=== PATIENT | female | born 1935 | race Caucasian/White ===

== ENCOUNTER → 2017-06-09 | Outpatient (CLI) | payer MEDICARE ==
[~2017-06-09] MED LIST: ALPRAZOLAM PO; AZITHROMYCIN 2250 MG PO; BUPROPION HCL100 MG PO; CALCIUM 600 +1 EAC5 PO; CELEXA40 MG PO; CIPRO500 MG PO; CIPROFLOXACIN500 M1 PO; CLONIDINE0.1 PO; EFFEXOR 5050 MG/1 T1 PO; EFFEXOR PO; EFFEXOR XR75 MG PO; FLAGYL500 MG PO; HYDROCODONE PO; HYDROCODONE-AP1 EAC6 PO; HYDROCODONE-APA1 TA1 PO; LAMICTAL 25 MG25 M1 PO; LISINOPRIL; LISINOPRIL10 MG PO; LYRICA PO; MIRALAX17 GM PO; MOBIC7.5 MG PO; MUCINEX600 MG PO; NEURONTIN 300300 M1 PO; NORCO 10-325 T1 EACH PO; NORCO 5-325 TA1 EACH PO; NORVASC2.5 MG PO; PERCOCET 5-3251 EACH PO; PHENERGAN 25 MG25 M1 PO; POTASSIUM20 PO; PRILOSEC 10MG C10 MG PO; PRILOSEC 20 MG20 MG PO; PRINZIDE 20-121 EACH PO; PROAIR HFA8.5 GM INH; SEE COMMENTS; SIMVASTATIN80 MG PO; VICODIN 5-5001 EACH PO; XANAX 0.25 MG0.25 MG PO; XANAX 0.5 MG0.5 MG PO; ZOCOR20 MG PO; ZOFRAN4 MG PO; [UNRECOGNIZED DRUG - REMARK]; [UNRECOGNIZED DRUG - REMARK]
== END ==
LOC: M.LAB 04:15
DX: Z01.812 Encounter for preprocedural laboratory examination (principal); E87.6 Hypokalemia

== ENCOUNTER → 2017-09-01 | Outpatient (CLI) | payer MEDICARE ==
--- NOTE | 2017-09-04 09:57 | PAINCON ---
[address] [address] PAIN MANAGEMENT CONSULTATION Name: SHONAJESSICA Maribel Room: [facility] COURTNEY Akanksha#: [id number] Admission: 09/01/17 Attend Phys: Maribel Barry Discharge: Date of : 37 Report #: [id number] THIS REPORT FOR: //name// CC: Jayleen Kang The patient is an 82-year-old female. She had prior been treated for symptomatic lumbar radiculopathy and axial back pain, history of osteopenia, requiring complex medication management. Last seen in pain clinic nearly a year ago in 08/2016. She returns to pain clinic today. We had a prolonged visit reviewing significant interval history. She did have a lumbar decompressive laminectomy with Dr. Freddy Winston at [facility]. Unfortunately, she still has ongoing axial back pain and exquisite left electric burning pain in an L5 distribution going into the foot and middle toes. She has some subjective weakness here and is using a cane. She is known of pulmonary "lesions" for quite some time, though there was concern that they may be growing. She is now [facility] She was also found to have a brain aneurysm as well as a brain tumor, which is felt to be benign. She followed up with Dr. Morgan Pacheco who suggested no surgery at this time. PHYSICAL EXAMINATION: Today notes pleasant 82-year-old female, significant subjective pain that she rates a 5-6 on a VAS. A petite woman, 5 feet tall, 116 pounds, BMI is 22.7 kilograms per meter squared. Blood pressure 137/49, pulse 85, respirations 16. Alert and oriented to person, place and time, judged to be a reasonable historian. Rises from chair using armrest. Antalgic gait. Grossly positive straight leg raise on the left with significant decreased left plantar flexion and lower leg flexion strength. Both these seem to exacerbate radicular pain. ASSESSMENT: 1. Symptomatic lumbar radiculopathy status post decompressive laminectomy, acute neuropathic pain, left L4-L5 distribution. New diagnosis of concern for pulmonary tumor. 2. New diagnosis of brain aneurysm as well as a brain tumor health issues are being monitored. Currently, no interventional procedures noted. She will, however, require frequent MRIs for following these. This may preclude many spinal cord stimulators, though the Nevro high frequency spinal cord stimulator with percutaneous leads is total body MRI compatible and may consider this as therapeutic option moving forward. PROCEDURE: Left L5-S1 transforaminal epidural [place] [address] PAIN MANAGEMENT CONSULTATION Name: JESSICA NAGEL Room: NADINE Vale#: [id number] Admission: 09/01/17 Attend Phys: Maribel Barry Discharge: Date of : 37 Report #: [id number] PROCEDURE NOTE: After both written and informed consent was obtained including risk of spinal cord damage, infection, increased pain and paralysis, the patient agreed to proceed. The patient was taken to the fluoroscopy suite, placed in a prone position with appropriate abdominal bolstering. After sterile prep with ChloraPrep and sterile drape, a skin wheal with 1% Xylocaine was raised. A 22 gauge 4-1/2 inch epidural Tuohy needle was inserted. From an oblique approach into the posterior-superior aspect of the left L5-S1 neural foramen with continuous pressure on the glass syringe plunger for loss of resistance. Glass syringe was filled with 2 cc of 0.1 Xylocaine. The glass loss of resistance syringe was removed. A low volume extension tubing was connected, negative aspiration was accomplished for cerebrospinal fluid or blood. 1 mL of Omnipaque was injected which showed spread both within the epidural space and laterally along the nerve root. This was followed with 80 mg of triamcinolone plus 1 mL of 1.5% preservative-free Xylocaine. Needle was partially withdrawn, 0.5 mL of Xylocaine was injected to clear the needle and the needle was removed. The area was cleansed, band-aid was applied. The patient was allowed to ambulate to the recovery room, discharged in good and stable condition. <ELECTRONICALLY SIGNED> By: Delvin Kang DO 09/04/17 0957 1210 1307Delvin Kang DO /nt
== END | disposition home or self-care (01) ==
LOC: M.PC 02:58
DX: M54.16 Radiculopathy, lumbar region (principal); G89.29 Other chronic pain; D49.1 Neoplasm of unspecified behavior of respiratory system; C71.9 Malignant neoplasm of brain, unspecified; Z79.891 Long term (current) use of opiate analgesic; Z98.890 Other specified postprocedural states

== ENCOUNTER → 2017-09-22 | Outpatient (CLI) | payer MEDICARE ==
--- NOTE | 2017-09-27 06:53 | PAINCON ---
[address] [address] PAIN MANAGEMENT CONSULTATION Name: SHONAJESSICA Maribel Room: [facility] COURTNEY Akanksha#: [id number] Admission: 09/22/17 Attend Phys: Maribel Barry Discharge: Date of : 37 Report #: [id number] THIS REPORT FOR: //name// CC: Uche Kang DATE OF SERVICE: 09/22/2017 HISTORY OF PRESENT ILLNESS: The patient is an 82-year-old female being treated for lumbar radiculopathy status post decompressive laminectomy, axial back pain requiring complex medication management. Last seen in the pain clinic on 09/01/2017. We have done a left L5-S1 transforaminal epidural injection at that time. She noted 100% relief initially, the pain has gradually returned somewhat. She still has overall 50% improvement in her baseline pain. She has a burning dysesthesia in her left foot and left L5 radicular pain. Uses a cane in her left hand. PHYSICAL EXAMINATION: Shows a modestly antalgic gait. BMI is 22.1 kilograms per meter squared. Blood pressure 137/75, pulse 83, respirations 18. Subjective pain score is 4 on a VAS. Rises from chair using armrest. Positive straight leg raise on the left with antalgic gait and decreased strength on the left side. ASSESSMENT: Symptomatic lumbar radiculopathy status post decompressive laminectomy. RECOMMENDATION: Repeat left L5-S1 transforaminal injection today with follow up simply as needed. PROCEDURE: Transforaminal lumbar epidural injection under fluoroscopy. PROCEDURE NOTE: After both written and informed consent was obtained including risk of spinal cord damage, infection, increased pain and paralysis, the patient agreed to proceed. The patient was taken to the fluoroscopy suite, placed in a prone position with appropriate abdominal bolstering. After sterile prep with ChloraPrep and sterile drape, a skin wheal with 1% Xylocaine was raised. A 22 gauge 4-1/2 inch epidural Tuohy needle was inserted. From an oblique approach into the posterior-superior aspect of the left L5-S1 neural foramen with continuous pressure on the glass syringe plunger for loss of resistance. Glass syringe was filled with 2 mL of 0.1 Xylocaine. The glass loss of resistance syringe was removed. A low volume extension tubing was connected, negative aspiration was accomplished for cerebrospinal fluid or blood. 1 mL of Omnipaque was injected which showed spread both within the epidural space and laterally along the nerve root. This was followed with 80 mg of triamcinolone plus 1 mL of 1.5% preservative-free Xylocaine. Needle was partially withdrawn, 0.5 mL of Xylocaine was injected to clear the needle and [place] [address] PAIN MANAGEMENT CONSULTATION Name: SHONAJESSICA Maribel Room: [facility] MAHESH Vale#: [id number] Admission: 09/22/17 Attend Phys: Maribel Barry Discharge: Date of : 37 Report #: [id number] was cleansed, band-aid was applied. The patient was allowed to ambulate to the recovery room, discharged in good and stable condition. <ELECTRONICALLY SIGNED> By: Delvin Knag DO 09/27/17 0653 1401 0508Delvin Kang DO /nt
== END | disposition home or self-care (01) ==
LOC: M.PC 01:43
DX: M54.16 Radiculopathy, lumbar region (principal); G89.29 Other chronic pain; Z79.891 Long term (current) use of opiate analgesic; Z79.899 Other long term (current) drug therapy; Z87.19 Personal history of other diseases of the digestive system; Z98.890 Other specified postprocedural states

== ENCOUNTER → 2017-12-09 | Outpatient (CLI) | payer MEDICARE ==
--- NOTE | 2017-12-15 14:16 | PAINCON ---
[address] [address] PAIN MANAGEMENT CONSULTATION Name: JESSICA NAGEL Room: [facility] Akanksha#: [id number] Admission: 12/09/17 Attend Phys: Griselda Liu MD Discharge: Date of : 37 Report #: [id number] THIS REPORT FOR: //name// CC: Griselda Garvey DATE OF SERVICE: 12/09/2017 CHIEF COMPLAINT: Lumbar pain down into the left leg. HISTORY OF PRESENT ILLNESS: The patient is an 82-year-old female with a history of spinal stenosis and osteopenia. She has been experiencing low back pain with pain radiating down into her left leg. She has had some problems with her low back for years. She feels that her sciatic is "real bad." She finds that [place] continues to be helpful. She had an MRI about 6 months ago for lung cancer. No treatment has been taken. Rates her pain as a 4-5/10. Notes that activities such as walking, bending, running the vacuum brass cleaner, and going up and down stairs can exacerbate her discomfort. ALLERGIES: No known drug allergies. MEDICATIONS: Effexor XR 37.5 mg, lisinopril 10 mg daily, Xanax 0.25 mg daily, Prilosec 10 mg, simvastatin 20 mg, hydrocodone 5/325 q. 4-6h. p.r.n. PAST MEDICAL HISTORY: Irritable bowel syndrome, diverticulosis, depression/anxiety, hypertension, colon problems, lung disease, and COPD. PAST SURGICAL HISTORY: Hysterectomy in 1966, colon surgery in 2003. 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 PAIN CLINIC ASSESSMENT: 1. History of osteoarthritis with some arthritic changes in the low portion of her back with spinal stenosis, back surgery in the past. 2. Height 5 feet 0 inches, weight 114 pounds, BMI is 22. 3. Vital signs: Blood pressure 136/74, heart rate 86, respiratory rate 16, room air saturation 95%, temperature 98.0, pain rated as 4-5/10. 4. Fall. The patient has chronic sciatica. Fell about 3 years ago. States that she fell down 6 steps and landed on her butt on each step, ____ third vertebrae. 5. Blood thinner. The patient is not on a blood thinning medication. 6. Hypertension. The patient is being treated for hypertension. 7. Opioid therapy greater than 6 weeks. 8. Risk assessment tool. 9. Functional assessment tool. 10. Recreational drug use. The patient [place] [address] PAIN MANAGEMENT CONSULTATION Name: JESSICA NAGEL Maribel Room: [facility]#: [id number] Admission: 12/09/17 Attend Phys: Griselda Liu MD Discharge: Date of : 37 Report #: [id number] 11. Tobacco 3/4 of a pack of cigarettes, smoked for 60 years. 12. Alcohol: The patient denies use of alcoholic beverages. PHYSICAL EXAMINATION: GENERAL: The patient is a well-developed white female, appears her stated age. She is alert and oriented x 3. Complains of pain and discomfort in the lower portion of her back. Sits in a chair, leaning to the left. Speech is fluent. HEENT: Normocephalic, atraumatic. Extraocular eye muscles intact. Hearing within normal limits. Mucous membranes are moist. NECK: Without JVD or adenopathy. LUNGS: Somewhat decreased breath sounds. ABDOMEN: Nontender. EXTREMITIES: Upper extremity muscle strength is judged to be 4/5 for the major muscle groups in the upper extremity. The patient complains of pain and discomfort in lower portion of her back with pain that radiating down into the left leg. IMPRESSION: Low back pain with pain radiating down to the left leg, ____ irritable bowel syndrome, diverticulosis, depression/anxiety, hypertension, colon problems, lung disease, and chronic obstructive pulmonary disease. RECOMMENDATIONS: We discussed treatment options with the patient. Risks and benefits of an epidural steroid injection using the transforaminal approach were discussed. Possible complications of the procedure were reviewed. They could include but are not limited to infection, no improvement in pain, worsening of pain, bleeding, and infection. The patient elects to proceed. PROCEDURE NOTE: The patient was taken to the procedure area. She was then assisted in getting on the examination table. Her back was then positioned. A pillow was placed under the abdomen to help bolster and improve positioning. Fluoroscopy using anterior posterior as well as lateral viewing were instituted. A 0.25% bupivacaine was infiltrated at the L5/S1 area. A 20-gauge spinal needle was then advanced into this area after it had been sterilely prepped using a transforaminal approach. After appropriate placement, a total of 80 mg Depo-Medrol, 20 mg triamcinolone was injected into the area. The patient did not complain of any pain or discomfort during the procedure. She remained in the pain clinic for an appropriate amount of time. She will follow up in the future as needed. Hopefully, she continues to improve and gain clean benefit from this. We would like to thank you for letting us participate in her care. We hope she continues to improve. <ELECTRONICALLY SIGNED> By: Griselda Liu MD 12/15/17 1416 2129 0120N. Jorge Luis Liu MD /nt
== END | disposition home or self-care (01) ==
LOC: M.PC 03:27
DX: M54.16 Radiculopathy, lumbar region (principal); G89.29 Other chronic pain; I10 Essential (primary) hypertension; J44.9 Chronic obstructive pulmonary disease, unspecified; F32.9 Major depressive disorder, single episode, unspecified; F41.9 Anxiety disorder, unspecified; Z87.19 Personal history of other diseases of the digestive system; Z79.899 Other long term (current) drug therapy; Z90.710 Acquired absence of both cervix and uterus; Z98.890 Other specified postprocedural states; Z79.891 Long term (current) use of opiate analgesic

== ENCOUNTER 2018-02-02 19:12 | Emergency (ER) | payer MEDICARE ==
[~2018-02-02] VITALS: Ht 152.4 cm; Wt 49.4 kg
[~2018-02-02 19:12] MED LIST changes: -ZOFRAN4 MG PO
[2018-02-02 19:50] LABS: HEMATOCRIT 47.1 % (37.0-47.0); HEMOGLOBIN 15.8 gm/dL (12.0-15.0); MCH 31.7 pg (26.0-34.0); MCHC 33.6 g/dL (28.0-37.0); MCV 94.4 fL (80.0-100.0); MPV 7.3 fl. (7.2-11.1); NUCLEATED RBCS 0 /100WBC; PLATELET COUNT* 331 thou/uL (150-400); RBC 4.99 mil/uL (4.20-5.00); RDW-CV 13.4 % (10.5-14.5); WBC 17.1 thou/uL (4.0-11.0)
[2018-02-02 19:54] LABS: ANION GAP 7 mmol/L (7-16); BUN 36 mg/dL (7-18); CALCIUM 8.8 mg/dL (8.5-10.1); CHLORIDE 97 mmol/L (98-107); CO2 31 mmol/L (21-32); CREATININE 1.2 mg/dL (0.6-1.3); GLUCOSE 140 mg/dL (70-99); POTASSIUM 3.2 mmol/L (3.5-5.1); SODIUM 135 mmol/L (136-145)
[2018-02-02 20:05] LABS: ALBUMIN 3.5 g/dL (3.4-5.0); ALKALINE PHOSPHATASE 58 U/L (46-116); LIPASE 131 U/L (73-393); NT-PRO BRAIN NAT PEPTIDE 289 pg/mL (<300); SGOT 23 U/L (15-37); SGPT 27 U/L (30-65); TOTAL BILIRUBIN 0.3 mg/dL (<0.1-1.0); TOTAL PROTEIN 6.9 g/dL (6.4-8.2)
[2018-02-02 20:19] LABS: TROPONIN-I LEVEL <0.06 ng/mL (<0.06)
[2018-02-02 20:31] LABS: ABSOLUTE LYMPHOCYTES 3.6 thou/uL (0.8-5.3); ABSOLUTE MONOCYTES 2.4 thou/uL (0.0-1.2); ABSOLUTE NEUTROPHILS 11.1 thou/uL (1.6-8.1); METAMYELOCYTES 1 %; PLATELET ESTIMATE ADEQUATE
[2018-02-02 20:35] LABS: URINE BILIRUBIN NEGATIVE (Negative); URINE BLOOD 1+ (Negative); URINE CLARITY CLEAR; URINE COLOR YELLOW; URINE GLUCOSE-RANDOM NEGATIVE (Negative); URINE KETONES NEGATIVE (Negative); URINE LEUKOCYTES-REFLEX TRACE (Negative); URINE NITRITE-REFLEX NEGATIVE (Negative); URINE PROTEIN TRACE (Negative); URINE UROBILINOGEN 0.2 E.U./dl (0.2-1.0)
[2018-02-02 20:44] LABS: BACTERIA-REFLEX 1-9 Few /HPF (None Seen); CASTS None Seen /LPF (None Seen); CRYSTALS None Seen /LPF (None Seen); SQUAMOUS 4-10 Moderate /LPF (0-3); URINE RBC 0-2 Rare /HPF (0-2); URINE WBC-REFLEX 0-5 Rare /HPF (0-5)
[2018-02-02] MEDS ORDERED: ZOFRAN4 MG PO (21:19)
[2018-02-02 21:33] VITALS: BP 132/60
--- NOTE | 2018-02-03 16:40 | EKG ---
[place] [address] ELECTROCARDIOGRAM REPORT Name: JESSICA NAGEL Room: [facility]#: [id number] Admission: 02/02/18 Attend Phys: Discharge: 02/02/18 Date of : 37 Report #: [id number] THIS REPORT FOR: //name// [facility] ED Test Date: 2018-02-02 Test Time: 21:18:04 Pat Name: JESSICA NAGEL Department: Room: Gender: F Learning Coordinator: NICO : 1935 Requested By: Saba Velasquez Order Number: [id number] MD: Morgan Oliver Measurements Intervals [place] Rate: 76 P: 78 NM: 166 QRS: 22 QRSD: 92 T: 110 QT: 392 QTc: 441 Interpretive Statements Sinus rhythm Borderline repolarization abnormality Compared to ECG 01/06/2017 18:43:32 ST (T wave) deviation persists Electronically Signed On 02-03-2018 16:40:40 CDT by Morgan Oliver [email or web address] <ELECTRONICALLY SIGNED> By: Morgan Oliver MD, [facility] 02/03/18 [employer] 17 17 Morgan Oliver MD, FACC /EPI
[2018-02-15] MEDS ORDERED: ZOFRAN4 MG PO (08:14)
[2018-02-15] MEDS ORDERED: NEURONTIN 300300 M1 PO (09:47)
== END 2018-02-02 21:34 | disposition home or self-care (01) ==
LOC: M.ERS 19:12
PROVIDERS: Nurse Practitioner
DX: R10.84 Generalized abdominal pain (principal); R19.7 Diarrhea, unspecified; J44.9 Chronic obstructive pulmonary disease, unspecified; M54.30 Sciatica, unspecified side; F17.210 Nicotine dependence, cigarettes, uncomplicated

== ENCOUNTER → 2018-02-15 | Outpatient (CLI) | payer MEDICARE ==
[~2018-02-15] MED LIST changes: +ZOFRAN4 MG PO
--- NOTE | 2018-02-28 10:30 | PAINCON ---
[facility] [address] [place] [address] PAIN MANAGEMENT CONSULTATION Name: BEATRIZLINDAJESSICA BONE Room: [facility] MAHESH Vale#: [id number] Admission: 02/15/18 Attend Phys: Griselda Liu MD Discharge: Date of : 37 Report #: [id number] THIS REPORT FOR: //name// CC: Griselda Garvey DATE OF SERVICE: 02/15/2018 FOLLOWUP HISTORY: Injection lasted about 2 weeks. FOLLOWUP HISTORY: The patient is an 82-year-old female who has been followed in the Pain Clinic because of lumbar radiculopathy. She has undergone back surgery. Continues to have problems with spinal stenosis and has pain and discomfort in her back area. Also, has pain and discomfort down into the left leg, which is burning in nature. She underwent a transforaminal epidural steroid injection. She gleaned benefit, but felt that that lasted for about 2 weeks. At this juncture, she does not feel that an injection would be worth a 2-week benefits that she received. She has used gabapentin in the past. She cannot recall what benefits was cleaned, she stopped that after she had her back surgery. Does have limitation in her ability to engage in activities such as walking, bending, running, running of vacuum casing cleaner and climbing stairs. Rates her pain as a 6/10. She has had no complications from the injections. She finds that [place] 10 mg 1 p.o. t.i.d. to q.i.d. is helpful. Also, finds that Xanax is helpful at night to help promote sleep. ALLERGIES: No known drug allergies. MEDICATIONS: Effexor 37.5 mg, lisinopril 10 mg, Xanax 0.25 mg, Prilosec 10 mg, simvastatin 20 mg and hydrocodone 10/325 one p.o. q.i.d. PAIN CLINIC ASSESSMENT AND PQRS: 1. History of osteoarthritis with some arthritic change in the lower portion of her back with spinal stenosis and back surgery in the past. 2. Rheumatoid arthritis. The patient has not been treated for rheumatoid arthritis. 3. Height 5 feet 0 inches, weight 113 pounds, BMI is 22. 4. Vital signs: Blood pressure 163/73, heart rate 82, respiratory rate 16, room air saturation 96%, temperature 98.5. Pain score 6/10. 5. Fall history: The patient has not fallen in the last 3 months. 6. Blood thinner. The patient is not on blood thinning medication. 7. Hypertension. The patient is being treated for hypertension. 8. Opioid greater than 6 weeks. 9. Risk assessment tool. 10. Functional assessment tool. 11. Recreational drug use. 12. Tobacco ____ pack of cigarettes per day. The patient has smoked for 60 [facility] [address] [place] [address] PAIN MANAGEMENT CONSULTATION Name: JESSICA NAGEL Room: [facility]#: [id number] Admission: 02/15/18 Attend Phys: Griselda Liu MD Discharge: Date of : 39 Report #: [id number] years. I spent three minutes discussing the benefits of cessation of all tobacco. 13. Alcohol: The patient denies use of alcoholic beverages. PHYSICAL EXAMINATION: GENERAL: The patient is a well-developed, well-nourished white female. She appears her stated age. She is alert and oriented x 3. Complains of pain and discomfort in lower portion of her back. Sits in the chair, leaning forward and to the left. Speech is fluent. HEENT: Normocephalic, atraumatic. Extraocular eye muscles intact. Hearing is within normal limits. Mucous membranes are moist. NECK: Without JVD or adenopathy. LUNGS: Decreased breath sounds. ABDOMEN: Nontender. Bowel sounds present. EXTREMITIES: Lower extremity muscle strength judged to be 4/5 for the major muscle groups. Upper extremity muscle strength is judged to be 4/5. The patient walks with an exaggerated left and right movement, which has characteristics of a painful gait. IMPRESSION: 1. Low back pain status post back surgery with spinal stenosis 2. Irritable bowel syndrome. 3. Diverticulosis. 4. Depression/anxiety. 5. Hypertension. 6. Colon problems. 7. Lung disease. 8. Chronic obstructive pulmonary disease. RECOMMENDATIONS: We discussed treatment options with the patient. At this juncture, she feels like she has gotten less pain relief from the injections that she would like. She would like to continue with a conservative approach. We explained to her that is a reasonable option. She has used gabapentin in the past. She cannot recall whether or not this was helpful she thinks it may have been. We will start her on gabapentin and slowly titrate this up again. She will continue with the [place]. She states she has some medications to her primary physician. I think this is a reasonable treatment for a lady of her age. She is not a real candidate for additional surgery. Does not feel that the injections have been efficacious as she would like. She will follow up in the future as needed. We would like to thank you for letting us participate in her care. We hope she continues to improve. <ELECTRONICALLY SIGNED> By: Griselda Liu MD 02/28/18 1030 0957 1107N. Jorge Luis Liu MD /schuyler
== END ==
LOC: M.PC 10-20 09:00
DX: M54.5 Low back pain (principal); K58.9 Irritable bowel syndrome, unspecified; K57.90 Diverticulosis of intestine, part unspecified, without perforation or abscess without bleeding; F41.8 Other specified anxiety disorders; I10 Essential (primary) hypertension; J44.9 Chronic obstructive pulmonary disease, unspecified; J98.4 Other disorders of lung; K63.9 Disease of intestine, unspecified

== ENCOUNTER 2018-04-08 04:35 | Emergency (ER) | payer MEDICARE ==
[~2018-04-08] VITALS: Ht 152.4 cm; Wt 48.9 kg
[2018-04-08 04:58] LABS: ABSOLUTE LYMPHOCYTES 1.3 thou/uL (0.8-5.3); ABSOLUTE MONOCYTES 0.5 thou/uL (0.0-1.2); ABSOLUTE NEUTROPHILS 6.5 thou/uL (1.6-8.1); BASOPHILS 0.5 %; HEMATOCRIT 46.1 % (37.0-47.0); HEMOGLOBIN 15.7 gm/dL (12.0-15.0); LYMPHOCYTES 15.7 %; MCH 31.9 pg (26.0-34.0); MCHC 33.9 g/dL (28.0-37.0); MCV 93.9 fL (80.0-100.0); MONOCYTES 6.2 %; MPV 8.1 fl. (7.2-11.1); NUCLEATED RBCS 0 /100WBC; PLATELET COUNT* 285 thou/uL (150-400); POLYS 77.6 %; RBC 4.91 mil/uL (4.20-5.00); RDW-CV 12.8 % (10.5-14.5); WBC 8.4 thou/uL (4.0-11.0)
[2018-04-08 05:06] LABS: CALCIUM 10.5 mg/dL (8.5-10.1); POTASSIUM 3.1 mmol/L (3.5-5.1)
[2018-04-08 05:09] LABS: ALBUMIN 4.4 g/dL (3.4-5.0); TOTAL BILIRUBIN 0.4 mg/dL (<0.1-1.0); TOTAL PROTEIN 7.8 g/dL (6.4-8.2)
[2018-04-08 06:34] VITALS: BP 138/66
== END 2018-04-08 06:34 | disposition home or self-care (01) ==
LOC: M.ERS 04:35
PROVIDERS: Emergency Medicine
DX: R10.13 Epigastric pain (principal); R10.12 Left upper quadrant pain; R19.7 Diarrhea, unspecified; J44.9 Chronic obstructive pulmonary disease, unspecified; K58.9 Irritable bowel syndrome, unspecified; F17.210 Nicotine dependence, cigarettes, uncomplicated

== ENCOUNTER 2018-04-12 18:23 | Emergency (ER) | payer MEDICARE ==
[~2018-04-12] VITALS: Ht 152.4 cm; Wt 48.5 kg
[2018-04-12 18:46] LABS: ABSOLUTE BASOPHILS 0.2 thou/uL (0.0-0.2); ABSOLUTE EOSINOPHILS 0.1 thou/uL (0.0-0.7); ABSOLUTE LYMPHOCYTES 5.4 thou/uL (0.8-5.3); ABSOLUTE MONOCYTES 1.6 thou/uL (0.0-1.2); ABSOLUTE NEUTROPHILS 7.8 thou/uL (1.6-8.1); BASOPHILS 1.2 %; EOSINOPHILS 0.7 %; HEMATOCRIT 48.5 % (37.0-47.0); HEMOGLOBIN 16.2 gm/dL (12.0-15.0); LYMPHOCYTES 35.9 %; MCH 31.5 pg (26.0-34.0); MCHC 33.4 g/dL (28.0-37.0); MCV 94.3 fL (80.0-100.0); MONOCYTES 10.6 %; MPV 8.1 fl. (7.2-11.1); NUCLEATED RBCS 0 /100WBC; PLATELET COUNT* 295 thou/uL (150-400); POLYS 51.6 %; RBC 5.14 mil/uL (4.20-5.00); WBC 15.1 thou/uL (4.0-11.0)
[2018-04-12 18:55] LABS: ANION GAP 10 mmol/L (7-16); BUN 33 mg/dL (7-18); CALCIUM 9.5 mg/dL (8.5-10.1); CHLORIDE 96 mmol/L (98-107); CO2 31 mmol/L (21-32); CREATININE 1.2 mg/dL (0.6-1.3); GLUCOSE 115 mg/dL (70-99); SODIUM 137 mmol/L (136-145)
[2018-04-12 18:56] LABS: APTT 24.1 Seconds (25.0-31.3); INR 1.1
[2018-04-12 19:01] LABS: ALBUMIN 3.8 g/dL (3.4-5.0); ALKALINE PHOSPHATASE 65 U/L (46-116); LIPASE 141 U/L (73-393); SGOT 20 U/L (15-37); SGPT 22 U/L (30-65); TOTAL BILIRUBIN 0.4 mg/dL (<0.1-1.0); TOTAL PROTEIN 6.8 g/dL (6.4-8.2); TROPONIN-I LEVEL <0.06 ng/mL (<0.06)
[2018-04-12 20:22] VITALS: BP 111/85
--- NOTE | 2018-04-13 16:15 | EKG ---
[place] [address] ELECTROCARDIOGRAM REPORT Name: JESSICA NAGEL [id number] Admission: 04/12/18 Attend Phys: Discharge: 04/12/18 Date of : 39 Report #: [id number] THIS REPORT FOR: //name// [facility] ED Test Date: 2018-04-12 Test Time: 18:43:17 Pat Name: JESSICA NAGEL Department: Room: Gender: F Quarry Supervisor Dimension Stone: : 1935 Requested By: Josué Can Order Number: [id number] MD: Morgan Oliver Measurements Intervals [place] Rate: 76 P: 81 IA: 150 QRS: 45 QRSD: 87 T: 76 QT: 383 QTc: 431 Interpretive Statements Sinus rhythm Compared to ECG 02/02/2018 21:18:04 No significant changes Electronically Signed On 04-13-2018 16:15:34 TERRAZZO LAYER by Morgan Oliver [email or web address] <ELECTRONICALLY SIGNED> By: Morgan Oliver MD, [facility] 04/13/18 1615 1843 1843 Morgan Oliver MD, FACC /EPI
== END 2018-04-12 20:23 | disposition home or self-care (01) ==
LOC: M.ERS 18:23
PROVIDERS: Family Medicine
DX: K59.00 Constipation, unspecified (principal); K58.9 Irritable bowel syndrome, unspecified; J44.9 Chronic obstructive pulmonary disease, unspecified; F17.210 Nicotine dependence, cigarettes, uncomplicated

== ENCOUNTER 2019-05-10 20:42 | Emergency (ER) | payer MEDICARE ==
[~2019-05-10] VITALS: Ht 149.9 cm; Wt 45.4 kg
[2019-05-10 21:06] LABS: ABSOLUTE LYMPHOCYTES 1.6 thou/uL (0.8-5.3); ABSOLUTE MONOCYTES 0.3 thou/uL (0.0-1.2); ABSOLUTE NEUTROPHILS 5.4 thou/uL (1.6-8.1); BASOPHILS 0.4 %; EOSINOPHILS 0.1 %; HEMATOCRIT 48.5 % (37.0-47.0); HEMOGLOBIN 16.6 gm/dL (12.0-15.0); LYMPHOCYTES 22.5 %; MCH 31.5 pg (26.0-34.0); MCHC 34.3 g/dL (28.0-37.0); MCV 91.8 fL (80.0-100.0); MONOCYTES 3.7 %; MPV 7.8 fl. (7.2-11.1); NUCLEATED RBCS 0 /100WBC; PLATELET COUNT* 331 thou/uL (150-400); POLYS 73.3 %; RBC 5.28 mil/uL (4.20-5.00); RDW-CV 13.5 % (10.5-14.5); WBC 7.3 thou/uL (4.0-11.0)
[2019-05-10 21:13] LABS: CALCIUM 10.1 mg/dL (8.5-10.1); POTASSIUM 4.2 mmol/L (3.5-5.1)
[2019-05-10 21:20] LABS: INR 1.1; PROTIME 11.2 Seconds (9.20-11.50)
[2019-05-10 21:24] LABS: ALBUMIN 4.6 g/dL (3.4-5.0); TOTAL BILIRUBIN 0.3 mg/dL (<0.1-1.0); TOTAL PROTEIN 8.7 g/dL (6.4-8.2)
[2019-05-10 23:03] LABS: URINE BILIRUBIN NEGATIVE (Negative); URINE BLOOD TRACE (Negative); URINE CLARITY CLEAR; URINE COLOR STRAW; URINE GLUCOSE-RANDOM NEGATIVE (Negative); URINE KETONES NEGATIVE (Negative); URINE LEUKOCYTES-REFLEX NEGATIVE (Negative); URINE NITRITE-REFLEX NEGATIVE (Negative); URINE PROTEIN NEGATIVE (Negative); URINE UROBILINOGEN 0.2 E.U./dl (0.2-1.0)
[2019-05-10 23:34] VITALS: BP 166/65
--- NOTE | 2019-05-11 12:58 | EKG ---
[place] [address] ELECTROCARDIOGRAM REPORT Name: JESSICA NAGEL [id number] Admission: 05/10/19 Attend Phys: Discharge: 05/10/19 Date of : 39 Report #: [id number] THIS REPORT FOR: //name// [facility] ED Test Date: 2019-05-10 Test Time: 21:07:05 Pat Name: JESSICA NAGEL Department: Room: Gender: F Service Secretary: [place] : 1935 Requested By: Queenie Huff Order Number: [id number] MD: Freddy Cardoza Measurements Intervals [place] Rate: 75 P: 83 MN: 143 QRS: 41 QRSD: 88 T: 89 QT: 414 QTc: 463 Interpretive Statements Sinus rhythm Nonspecific T abnormalities, lateral leads Compared to ECG 04/12/2018 18:43:17 no change Electronically Signed On 05-11-2019 12:57:34 MICROBIOLOGY DIRECTOR by Freddy Cardoza [email or web address] <ELECTRONICALLY SIGNED> By: Freddy Cardoza MD, [facility] 05/11/19 1257 06 06 Freddy Cardoza MD, FACC /EPI
== END 2019-05-10 23:35 | disposition home or self-care (01) ==
LOC: M.ERS 20:42
PROVIDERS: Emergency Medicine
DX: F41.9 Anxiety disorder, unspecified (principal); R10.32 Left lower quadrant pain; J44.9 Chronic obstructive pulmonary disease, unspecified; K58.9 Irritable bowel syndrome, unspecified; F17.210 Nicotine dependence, cigarettes, uncomplicated

== ENCOUNTER 2019-05-12 10:58 | Emergency (ER) | payer MEDICARE ==
[~2019-05-12] VITALS: Ht 149.9 cm; Wt 45.0 kg
[2019-05-12] MEDS ORDERED: BENTYL 10 MG CA10 MG PO (11:12)
[2019-05-12 11:59] VITALS: BP 165/52
== END 2019-05-12 12:01 | disposition home or self-care (01) ==
LOC: M.ERS 10:58
DX: G89.29 Other chronic pain (principal); R10.9 Unspecified abdominal pain; M54.5 Low back pain; J44.9 Chronic obstructive pulmonary disease, unspecified; F17.210 Nicotine dependence, cigarettes, uncomplicated; Z98.890 Other specified postprocedural states

== ENCOUNTER → 2019-06-08 | Outpatient (CLI) | payer MEDICARE ==
[~2019-06-08] MED LIST changes: +BENTYL 10 MG CA10 MG PO
== END ==
LOC: M.CT 10:44
DX: I67.1 Cerebral aneurysm, nonruptured (principal); R90.82 White matter disease, unspecified

== ENCOUNTER 2019-06-15 12:44 | Inpatient (IN) | payer MEDICARE ==
[~2019-06-15] VITALS: Ht 149.9 cm; Wt 45.3 kg
--- NOTE | ~2019-06-15 | EKG ---
[place] [address] ELECTROCARDIOGRAM REPORT Name: JESSICA NAGEL Room: [address] M.R.#: [id number] Admission: 06/15/19 Attend Phys: Jose Webb Discharge: Date of : 39 Date of Service: 06/15/19 1432 Report #: [id number] THIS REPORT FOR: cc: Jayleen Carter Maggie M. DO Epiphany, Epiphany MD ~ THIS REPORT FOR: //name// [facility] Test Date: 2019-06-15 Test Time: 14:32:45 Pat Name: JESSICA NAGEL Department: Room: [address] Gender: F Cloth Bleaching Range Tender: 1883 : 1935 Requested By: Jose Webb Order Number: [id number] Reading MD: Measurements Intervals [place] Rate: 90 P: 88 AL: 156 QRS: 51 QRSD: 84 T: 95 QT: 382 QTc: 468 Interpretive Statements Sinus rhythm Supraventricular bigeminy Probable left atrial enlargement Borderline repolarization abnormality Compared to ECG 05/10/2019 21:07:05 Atrial premature complex(es) now present T-wave abnormality no longer present [email or web address] By: 143 143 Epiphany EpiphMD maurice /FREDY
[~2019-06-15 12:44] MED LIST changes: -PRINZIDE 20-121 EACH PO; +ZESTORETIC 20-1 EAC3 PO
[2019-06-15 14:15] VITALS: BP 180/69
[2019-06-15 15:34] LABS: ABSOLUTE LYMPHOCYTES 4.1 thou/uL (0.8-5.3); ABSOLUTE MONOCYTES 1.1 thou/uL (0.0-1.2); ABSOLUTE NEUTROPHILS 5.9 thou/uL (1.6-8.1); BASOPHILS 0.2 %; EOSINOPHILS 0.4 %; HEMATOCRIT 44.7 % (37.0-47.0); LYMPHOCYTES 36.4 %; MCH 31.1 pg (26.0-34.0); MCHC 33.6 g/dL (28.0-37.0); MCV 92.5 fL (80.0-100.0); MONOCYTES 10.1 %; MPV 7.7 fl. (7.2-11.1); NUCLEATED RBCS 0 /100WBC; PLATELET COUNT* 379 thou/uL (150-400); POLYS 52.9 %; RBC 4.83 mil/uL (4.20-5.00); RDW-CV 13.7 % (10.5-14.5); WBC 11.1 thou/uL (4.0-11.0)
[2019-06-15 16:00] VITALS: BP 193/72
[2019-06-15 16:00] LABS: ALBUMIN 3.8 g/dL (3.4-5.0); CALCIUM 9.8 mg/dL (8.5-10.1); CREATININE 1.4 mg/dL (0.6-1.3); POTASSIUM 3.5 mmol/L (3.5-5.1); TOTAL BILIRUBIN 0.3 mg/dL (<0.1-1.0); TOTAL PROTEIN 7.2 g/dL (6.4-8.2)
[2019-06-15 20:00] VITALS: BP 150/48
[2019-06-16] VITALS: BP 168/87
[2019-06-16 04:00] VITALS: BP 146/48
[2019-06-16 05:21] LABS: ABSOLUTE BASOPHILS 0.1 thou/uL (0.0-0.2); ABSOLUTE LYMPHOCYTES 2.9 thou/uL (0.8-5.3); ABSOLUTE MONOCYTES 1.2 thou/uL (0.0-1.2); ABSOLUTE NEUTROPHILS 7.5 thou/uL (1.6-8.1); BASOPHILS 0.6 %; EOSINOPHILS 0.2 %; HEMOGLOBIN 13.2 gm/dL (12.0-15.0); LYMPHOCYTES 24.5 %; MCH 31.3 pg (26.0-34.0); MCHC 33.8 g/dL (28.0-37.0); MCV 92.5 fL (80.0-100.0); MONOCYTES 10.5 %; MPV 7.5 fl. (7.2-11.1); NUCLEATED RBCS 0 /100WBC; POLYS 64.2 %; RBC 4.21 mil/uL (4.20-5.00); RDW-CV 13.3 % (10.5-14.5); WBC 11.7 thou/uL (4.0-11.0)
[2019-06-16 05:27] LABS: PLATELET COUNT* 284 thou/uL (150-400)
[2019-06-16 05:44] LABS: ALBUMIN 2.8 g/dL (3.4-5.0); CALCIUM 8.1 mg/dL (8.5-10.1); CREATININE 1.1 mg/dL (0.6-1.3); POTASSIUM 3.9 mmol/L (3.5-5.1); TOTAL BILIRUBIN 0.4 mg/dL (<0.1-1.0); TOTAL PROTEIN 5.5 g/dL (6.4-8.2)
[2019-06-16 07:00] VITALS: BP 147/50
[2019-06-16 07:21] LABS: INFLUENZA A ANTIGEN Negative (Negative); INFLUENZA B ANTIGEN Negative (Negative)
[2019-06-16] MEDS ORDERED: LEVAQUIN 500 M500 M3 PO ×2 (11:00→11:34)
[2019-06-16 11:02] VITALS: BP 147/50
[2019-06-16 11:39] VITALS: BP 162/56
[2019-06-16 16:34] VITALS: BP 173/71
== END 2019-06-16 18:17 | disposition home or self-care (01) | DRG 372 ==
LOC: M.2W 12:44
PROVIDERS: ADMIT Internal Medicine
DX: A04.9 Bacterial intestinal infection, unspecified (principal); N17.9 Acute kidney failure, unspecified; E44.1 Mild protein-calorie malnutrition; J44.9 Chronic obstructive pulmonary disease, unspecified; F17.200 Nicotine dependence, unspecified, uncomplicated; K57.30 Diverticulosis of large intestine without perforation or abscess without bleeding; E78.5 Hyperlipidemia, unspecified; F32.9 Major depressive disorder, single episode, unspecified; F41.9 Anxiety disorder, unspecified; G89.29 Other chronic pain; K58.0 Irritable bowel syndrome with diarrhea; M54.30 Sciatica, unspecified side; N18.3 Chronic kidney disease, stage 3 (moderate); I12.9 Hypertensive chronic kidney disease with stage 1 through stage 4 chronic kidney disease, or unspecified chronic kidney disease; Z79.899 Other long term (current) drug therapy; Z68.20 Body mass index [BMI] 20.0-20.9, adult

== ENCOUNTER → 2019-06-20 | Outpatient (CLI) | payer MEDICARE ==
[~2019-06-20] MED LIST changes: +LEVAQUIN 500 M500 M3 PO
--- NOTE | ~2019-06-20 | PAINCON ---
[address] [address] PAIN MANAGEMENT CONSULTATION Name: JESSICA NAGEL Room: [facility] [place]#: [id number] Admission: 06/20/19 Attend Phys: Griselda Liu MD Discharge: Date of : 39 Report #: [id number] THIS REPORT FOR: //name// cc: Jayleen Carter Maggie M. DO THIS REPORT FOR: //name// CC: Jayleen Portillo DATE OF SERVICE: 06/20/2019 CHIEF COMPLAINT: Low back pain. HISTORY: The patient is an 84-year-old female who has been followed in the pain clinic. She does suffer from lumbar radiculopathy. She made an appointment to be seen in the pain clinic. She has a history of spinal stenosis. At this juncture, she feels that her low back pain has improved. She does have pain down her left leg, but overall it is better. She had called to make an appointment with the thought of undergoing an epidural steroid injection. At this juncture, it has eased a bit and she feels that an injection might not be necessary today. She has been hospitalized over the last week. She has a history of gastritis. Rates her pain as a 5/10. She would like to continue with her hydrocodone medication. She has not had any complications from medications in the past. She has returned and would like to have her medications renewed and possibly return at a later date should her lumbar radicular pain required. ALLERGIES:1 No known drug allergies. CURRENT MEDICATIONS: Effexor 37.5 mg, lisinopril 10 mg, Xanax 0.25 mg, Prilosec 10 mg, simvastatin 20 mg, hydrocodone 10/325 one p.o. q.i.d. PAIN CLINIC ASSESSMENT AND PQRS: 1. The patient has some history of osteoarthritic changes in her low back and spinal area. She has had back surgery in the past. She is not being treated for rheumatoid arthritis. 2. Height 5 feet 0 inches, weight 100 pounds, BMI is 19.8. 3. Blood pressure 146/60, heart rate 93, respiratory rate 16, room air saturation 95%, temperature 97.5. 4. Pain intensity 5/10. 5. Fall history: The patient has not fallen since we saw her last. 6. Hypertension. The patient is being treated for hypertension. 7. Blood thinner. The patient is not on a blood thinning medication. 8. Opioids greater than 6 weeks. The [place] [address] PAIN MANAGEMENT CONSULTATION Name: JESSICA NAGEL [id number] Admission: 06/20/19 Attend Phys: Griselda Liu MD Discharge: Date of : 39 Report #: [id number] source of the pain clinic. 9. Functional assessment tool. 10. Recreational drug use. 11. Tobacco: The patient does smoke 1 pack of cigarettes per day and has smoked for the last 60 years. 12. Alcohol. The patient denies use of alcoholic beverages. PHYSICAL EXAMINATION: GENERAL: The patient is a well-developed, well-nourished white female. Appears her stated age. She is alert and oriented x 3. Her affect is appropriate. Speech is fluent. HEENT: Normocephalic, atraumatic. Extraocular eye muscles intact. Sclerae nonicteric. Mucous membranes are moist. NECK: Without adenopathy or JVD. LUNGS: Decreased breath sounds. ABDOMEN: Somewhat slightly tender. Bowel sounds present. EXTREMITIES: Upper extremity muscle strength 4/5 for the major muscle groups in the upper extremity. Lower extremity, the patient complains of some gastritis. IMPRESSION: 1. Low back pain, status post back surgery for spinal stenosis. 2. History of irritable bowel. The patient was hospitalized because of this and lost about 12 pounds. 3. History of diverticulosis. 4. Depression /anxiety. 5. Hypertension. 6. Colon problems. 7. Lung disease. 8. Chronic obstructive pulmonary disease. RECOMMENDATIONS: We discussed treatment options with the patient. At this juncture, she feels that her pain has decreased. It was more problematic when she made the appointment. At this point, she would like to continue with a conservative approach. She did lose about 13 pounds after being in the hospital for 8 days last week. She has been told that she had irritable bowel for years. This has been the most problematic episode. She does continue to walk with a cane. We will have the patient return to the Pain Clinic should her pain become more problematic. When she returns, we would consider the possibility of epidural steroid injections [place] [address] PAIN MANAGEMENT CONSULTATION Name: JESSICA NAGEL Room: [facility]#: [id number] Admission: 06/20/19 Attend Phys: Griselda Liu MD Discharge: Date of : 39 Report #: [id number] We would like to thank you for letting us participate in her care. We hope she continues to improve. By: [id number]. Jorge Luis Liu MD /nt
== END ==
LOC: M.PC 05:16
DX: M54.5 Low back pain (principal); J44.9 Chronic obstructive pulmonary disease, unspecified; I10 Essential (primary) hypertension; J98.4 Other disorders of lung; Z79.891 Long term (current) use of opiate analgesic

== ENCOUNTER → 2019-08-31 | Outpatient (CLI) | payer MEDICARE | LOC: M.CT 10:44 | DX: J43.9 Emphysema, unspecified (principal); J98.4 Other disorders of lung; R06.02 Shortness of breath ==

== ENCOUNTER 2019-10-22 17:34 | Emergency (ER) | payer MEDICARE ==
[~2019-10-22] VITALS: Ht 152.4 cm; Wt 42.2 kg
[2019-10-22 18:52] LABS: URINE BILIRUBIN NEGATIVE (Negative); URINE BLOOD NEGATIVE (Negative); URINE CLARITY CLEAR; URINE COLOR YELLOW; URINE GLUCOSE-RANDOM NEGATIVE (Negative); URINE KETONES TRACE (Negative); URINE LEUKOCYTES-REFLEX TRACE (Negative); URINE NITRITE-REFLEX NEGATIVE (Negative); URINE PROTEIN NEGATIVE (Negative); URINE UROBILINOGEN 0.2 E.U./dl (0.2-1.0)
[2019-10-22 19:00] LABS: BACTERIA-REFLEX 1-9 Few /HPF (None Seen); CASTS None Seen /LPF (None Seen); CRYSTALS None Seen /LPF (None Seen); SQUAMOUS 0-3 Few /LPF (0-3); URINE RBC 0-2 Rare /HPF (0-2); URINE WBC-REFLEX 0-5 Rare /HPF (0-5)
[2019-10-22 19:02] LABS: ABSOLUTE BASOPHILS 0.1 thou/uL (0.0-0.2); ABSOLUTE EOSINOPHILS 0.1 thou/uL (0.0-0.7); ABSOLUTE LYMPHOCYTES 3.9 thou/uL (0.8-5.3); ABSOLUTE MONOCYTES 1.4 thou/uL (0.0-1.2); ABSOLUTE NEUTROPHILS 5.7 thou/uL (1.6-8.1); BASOPHILS 0.7 %; EOSINOPHILS 0.6 %; HEMATOCRIT 49.5 % (37.0-47.0); HEMOGLOBIN 16.9 gm/dL (12.0-15.0); LYMPHOCYTES 35.1 %; MCH 31.1 pg (26.0-34.0); MCV 91.5 fL (80.0-100.0); MONOCYTES 12.4 %; MPV 7.9 fl. (7.2-11.1); NUCLEATED RBCS 0 /100WBC; PLATELET COUNT* 312 thou/uL (150-400); POLYS 51.2 %; RBC 5.41 mil/uL (4.20-5.00); RDW-CV 13.8 % (10.5-14.5); WBC 11.1 thou/uL (4.0-11.0)
[2019-10-22 19:17] LABS: CALCIUM 9.3 mg/dL (8.5-10.1); CREATININE 1.4 mg/dL (0.6-1.3); POTASSIUM 3.2 mmol/L (3.5-5.1)
[2019-10-22 19:27] LABS: ALBUMIN 3.8 g/dL (3.4-5.0); TOTAL BILIRUBIN 0.4 mg/dL (<0.1-1.0); TOTAL PROTEIN 7.3 g/dL (6.4-8.2)
[2019-10-22] MEDS ORDERED: ONDANSETRON HCL4 M2 PO (21:20)
[2019-10-22 21:32] VITALS: BP 128/62
--- NOTE | 2019-10-23 15:46 | EKG ---
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: : 1935 Requested By: Nia Pedroza Order Number: [id number] MD: Morgan Oliver Measurements Intervals [place] Rate: 67 P: 67 FL: 152 QRS: 42 QRSD: 86 T: 140 QT: 415 QTc: 438 Interpretive Statements Sinus rhythm Atrial premature complexes in couplets Probable left atrial enlargement Abnormal T, consider ischemia, lateral leads Compared to ECG 06/15/2019 14:32:45 T-wave abnormality now present Possible ischemia now present Electronically Signed On 10-23-2019 15:44:50 CDT by Morgan Oliver [email or web address] <ELECTRONICALLY SIGNED> By: Morgan Oliver MD, [facility] 10/23/19 1544 30 30 Morgan Oliver MD, [facility] /EPI
== END 2019-10-22 22:01 | disposition home or self-care (01) ==
LOC: M.ERS 17:34
PROVIDERS: Nurse Practitioner Family
DX: E86.0 Dehydration (principal); R19.7 Diarrhea, unspecified; K57.10 Diverticulosis of small intestine without perforation or abscess without bleeding; F17.210 Nicotine dependence, cigarettes, uncomplicated; J44.9 Chronic obstructive pulmonary disease, unspecified; R10.30 Lower abdominal pain, unspecified; R05 Cough; R06.02 Shortness of breath; Z85.118 Personal history of other malignant neoplasm of bronchus and lung

== ENCOUNTER 2020-01-03 00:18 | Inpatient (IN) | payer MEDICARE ==
[~2020-01-03] VITALS: Ht 149.9 cm; Wt 45.4 kg
[2020-01-03] VITALS (7 sets, daily range): BP systolic 147–173; BP diastolic 52–100
[~2020-01-03 00:18] MED LIST changes: +EFFEXOR XR150 MG PO; +ONDANSETRON HCL4 M2 PO
[2020-01-03] MEDS ORDERED: POTASSIUM20 PO (00:23)
[2020-01-03] MEDS ORDERED: BENTYL 10 MG CA10 MG PO (00:24)
[2020-01-03] MEDS ORDERED: VENLAFAXINE HCL25 MG PO (00:25)
[2020-01-03] MEDS ORDERED: ALPRAZOLAM XR3 MG PO (00:25)
[2020-01-03] MEDS ORDERED: LISINOPRIL-HCT1 EAC2 PO (00:26)
[2020-01-03] MEDS ORDERED: SIMVASTATIN80 MG PO (00:27)
[2020-01-03 00:54] LABS: ABSOLUTE BASOPHILS 0.2 thou/uL (0.0-0.2); ABSOLUTE EOSINOPHILS 0.6 thou/uL (0.0-0.7); ABSOLUTE LYMPHOCYTES 3.3 thou/uL (0.8-5.3); ABSOLUTE MONOCYTES 0.7 thou/uL (0.0-1.2); ABSOLUTE NEUTROPHILS 3.3 thou/uL (1.6-8.1); BASOPHILS 1.9 %; HEMATOCRIT 44.1 % (37.0-47.0); LYMPHOCYTES 40.7 %; MCH 31.4 pg (26.0-34.0); MCHC 34.1 g/dL (28.0-37.0); MCV 92.3 fL (80.0-100.0); MONOCYTES 8.3 %; MPV 8.3 fl. (7.2-11.1); NUCLEATED RBCS 0 /100WBC; PLATELET COUNT* 249 thou/uL (150-400); POLYS 41.1 %; RBC 4.78 mil/uL (4.20-5.00); RDW-CV 13.3 % (10.5-14.5)
[2020-01-03 01:01] LABS: CALCIUM 9.2 mg/dL (8.5-10.1); CREATININE 1.1 mg/dL (0.6-1.3); POTASSIUM 3.8 mmol/L (3.5-5.1)
[2020-01-03 01:11] LABS: ALBUMIN 3.6 g/dL (3.4-5.0); TOTAL BILIRUBIN 0.3 mg/dL (<0.1-1.0); TOTAL PROTEIN 7.1 g/dL (6.4-8.2)
[2020-01-03 01:13] LABS: INR 1.1; PROTIME 10.9 Seconds (9.20-11.50)
[2020-01-03 01:48] LABS: BE 3.5 mmol/L (-2 to +3); PO2 113.3 mmHg (75.0-100.0); pH 7.387 (7.340-7.450)
[2020-01-03 01:54] LABS: PCO2 50.3 mmHg (35.0-45.0)
[2020-01-03] MEDS ORDERED: LISINOPRIL-HCT1 EAC1 PO (05:54)
[2020-01-03] MEDS ORDERED: VENLAFAXINE HC225 MG PO (05:58)
--- NOTE | 2020-01-03 11:14 | NUR ---
CM SPOKE TO THE PT TO DISCUSS HER HOME SITUATION, DISCHARGE PLANNING, AND TO INFORM OF THE ROLE OF CM. PT A&O, INDEPENDENT WITH ADL'S, AND DRIVES. PT RESIDES AT HOME WITH SPOUSE AND DTR, BUT INFORMS THAT HER DTR IS AN OVER THE RO[place]. SO SHE IS MOSTLY OUT OF TOWN. PT'S SPOUSE IS NOT ABLE TO ASSIST HER WITH CARES AT HOME HE HAS BEEN GETTING WEAKER LATELY. PT HAS 0 HX OF HH OR SNF. CM WILL REMAIN AVAILABLE TO ASSIST AND FOLLOW NEEDED.
--- NOTE | 2020-01-03 13:18 | EKG ---
[place] [address] ELECTROCARDIOGRAM REPORT Name: JESSICA NAGEL Room: [address] ADM IN M.R.#: [id number] Admission: 01/03/20 Attend Phys: Concepcion Estrada, Discharge: Date of : 39 Date of Service: 01/03/20 0023 Report #: [id number] THIS REPORT FOR: //name// [facility] ED Test Date: 2020-01-03 Test Time: 00:23:22 Pat Name: JESSICA NAGEL Department: Room: [facility] Gender: F Wic Site Coordinator: HUGO : 1935 Requested By: Queenie Huff Order Number: [id number] MD: Morgan Oliver Measurements Intervals [place] Rate: 73 P: 82 [place]: 161 QRS: 45 QRSD: 90 T: 86 QT: 381 QTc: 420 Interpretive Statements Sinus rhythm Frequent PACs No previous ECG available for comparison Electronically Signed On 01-03-2020 13:18:44 CDT by Morgan Olvier [email or web address] <ELECTRONICALLY SIGNED> By: Morgan Olievr MD, [facility] 01/03/20 1318 0023 0023 Morgan Oliver MD, [facility] /EPI
--- NOTE | 2020-01-03 17:02 | NUR ---
Pt has remained alert, oriented and cooperative with staff. Remains on supplemental 02 via nc. No c/o or indication of respiratory distress
[2020-01-03 19:25] LABS: URINE BILIRUBIN NEGATIVE (Negative); URINE BLOOD 1+ (Negative); URINE CLARITY CLEAR; URINE COLOR YELLOW; URINE GLUCOSE-RANDOM NEGATIVE (Negative); URINE KETONES TRACE (Negative); URINE LEUKOCYTES-REFLEX NEGATIVE (Negative); URINE NITRITE-REFLEX NEGATIVE (Negative); URINE PROTEIN NEGATIVE (Negative); URINE UROBILINOGEN 0.2 E.U./dl (0.2-1.0)
[2020-01-03 19:31] LABS: BACTERIA-REFLEX 1-9 Few /HPF (None Seen); CASTS None Seen /LPF (None Seen); CRYSTALS None Seen /LPF (None Seen); SQUAMOUS 0-3 Few /LPF (0-3); URINE RBC 0-2 Rare /HPF (0-2); URINE WBC-REFLEX 0-5 Rare /HPF (0-5)
[2020-01-04 00:23] VITALS: BP 148/62
--- NOTE | 2020-01-04 05:01 | NUR ---
PT SLEPT ON AND OFF THIS SHIFT. ASSESSMENT DOCUMENTED. MEDS GIVEN PER E-JUL. IV PATENT, FLUIDS INFUSING. NO REPORTS OF PAIN. PT REFUSING TO WEAR BIPAP THIS SHIFT. O2 WORN AT 2L NC. ANXIETY MEDS GIVEN PER E-MAR. WILL CONTINUE WITH PLAN OF CARE.
[2020-01-04 05:06] LABS: CALCIUM 8.6 mg/dL (8.5-10.1); CREATININE 0.6 mg/dL (0.6-1.3); MAGNESIUM 1.5 mg/dL (1.8-2.4)
[2020-01-04 08:00] VITALS: BP 155/60
--- NOTE | 2020-01-04 10:15 | NUR ---
CM INFORMED OF CONSULT FOR HOSPICE FOR PT. CM ATTEMPTED TO SPEAK TO THE PT TO DISCUSS HOSPICE AND PT IMMEADIATELY BECAME ANXIOUS STATING 'I CANT HAVE THIS TALK RIGHT NOW. I JUST WANT TO GO HOME. ALL OF THIS TALKING IS MAKING MY ANYIETY WORSE'. PT INFORMS THAT HER SON WOULD COME TO THE HOSPITAL LATER, OR HER DTR COULD TALK ABOUT IT WHEN SHE GET HOME. CM ENDED THE DISCUSSION AND INFORMED THE PT THAT CM IS AVAILABLE TO ASSIST WITH WHATEVER SHE NEEDS AND WILL F/U AT ANOTHER TIME. CM WILL F/U WITH PT'S SON WHEN HE ARRIVES. CM WILL REMAIN AVAILABLE TO ASSIST AND FOLLOW NEEDED.
--- NOTE | 2020-01-04 15:19 | NUR ---
REPORT TO QUINCY SHAHID ON . Reviewed admitting diagnosis, past medical history and am nursing assessment. Reviewed transition from iv to oral azithromycin. Pt remains alert, oriented and cooperative. No c/o pain or distress. Will transfer via wc with supplemental 02 in use. Will also update on pt code status of NO Code
--- NOTE | 2020-01-04 15:44 | NUR ---
PT TRANSFERED TO ROOM 312. PT A/O X4. PREVIOUS ASSESSMENT REVIEWED. NO NEW FINDINGS. O2 2L NC.
--- NOTE | 2020-01-04 17:43 | NUR ---
PT DENIES PAIN. O2 2L NC. UP AD ALEXIS. A/O X4.
[2020-01-04 20:26] VITALS: BP 177/47
--- NOTE | 2020-01-05 06:53 | NUR ---
PATIENT SLEPT WELL DURING THIS SHIFT. PT UP AD ALEXIS TO BATHROOM. PT SALINE LOCKED IN RT FOREARM. PT DENIES PAIN/NAUSEA. PT ON O2 @ 2 LITERS PER NASAL CANNULA. PT DENIES NEEDS AT THIS TIME. FREQUENTLY USED ITEMS AND CALL LIGHT WITHIN REACH. SIDERAILS UPX2. WILL CONTINUE TO MONITOR.
[2020-01-05] MEDS ORDERED: CEFDINIR300 MG PO (08:07)
[2020-01-05] MEDS ORDERED: PREDNISONE 10 M10 MG PO (08:07)
[2020-01-05] MEDS ORDERED: CYMBALTA20 MG PO (08:07)
[2020-01-05] MEDS ORDERED: MUCINEX600 MG PO (08:07)
[2020-01-05] MEDS ORDERED: AZITHROMYCIN 2250 MG PO (08:07)
[2020-01-05 08:15] VITALS: BP 173/63
[2020-01-05 10:46] VITALS: BP 173/63
[2020-01-05 10:47] LABS: MAGNESIUM 1.6 mg/dL (1.8-2.4)
[2020-01-05 10:50] LABS: POTASSIUM 2.9 mmol/L (3.5-5.1)
--- NOTE | 2020-01-05 12:41 | NUR ---
PT.TO DISCHARGE HOME TODAY. RECOMMENDING HOSPICE. SPOKE WITH PT. SHE WAS TEARFUL. SHE STATED SHE IS NOT GOING TO SIGN ANYTHING UNTIL SHE TALKS WITH HER AND OTHER FAMILY. SHE IS 'JUST NOT GONNA SIGN HER LIFE AWAY.' EXPLAINED HOSPICE CAN HELP HER IN MANY WAYS. SHE SAID SHE KNEW ALL OF THIS, [place], FROM [facility] HAD BEEN OUT THIS AM. TOLD HER IM SURE HOSPICE WILL BE CALLING HER NEXT WEEK,OR SHE CAN CALL 'S OFFICE AND THEY CAN SET UP. DISCUSSED HER O2. SHE SAID SHE HAS O2 THROUGH [employer]. SHE HAS A CONCENTRATOR AND A MED. SIZE TANK BUT IT DOESN'T HAVE WHEELS. TOLD HER TO HAVE BRING THIS TANK FOR RIDE HOME. CM FAXED SATURATIONS AND PRTABILITY ORDER TO [employer]
--- NOTE | 2020-01-05 13:31 | NUR ---
PATIENT DISCHARGED TO HOME. REFUSED HOSPICE AND HOME HEALTH AT THIS TIME. DISCHARGE PAPERS REVIEWED AND SIGNED. PRESCRIPTIONS TRANSMITTED TO PHARMACY AND INFORMATION SHEETS. IV REMOVED. PATIENT DENIES ANY FURTHER NEEDS. PATIENT TAKEN BY WHEELCHAIR TO EXIT. LEFT WITH .
== END 2020-01-05 13:20 | disposition home or self-care (01) | DRG 177 ==
LOC: M.ERS 00:18 → M.2W 02:26 → M.TBA-ER 02:26 → M.2W 02:26 → M.3W 01-04 15:40
PROVIDERS: Emergency Medicine; Internal Medicine; ADMIT Internal Medicine; ATTEND Internal Medicine
PROC: 5A09357 Assistance with Respiratory Ventilation, Less than 24 Consecutive Hours, Continuous Positive Airway Pressure (ICD-10-PCS; principal; 2020-01-03)
DX: J15.6 Pneumonia due to other Gram-negative bacteria (principal); J96.01 Acute respiratory failure with hypoxia; J44.1 Chronic obstructive pulmonary disease with (acute) exacerbation; J44.0 Chronic obstructive pulmonary disease with (acute) lower respiratory infection; Z20.828 Contact with and (suspected) exposure to other viral communicable diseases; F17.210 Nicotine dependence, cigarettes, uncomplicated; F32.9 Major depressive disorder, single episode, unspecified; I10 Essential (primary) hypertension; F41.1 Generalized anxiety disorder; Z66 Do not resuscitate; Z79.899 Other long term (current) drug therapy; Z85.118 Personal history of other malignant neoplasm of bronchus and lung

== ENCOUNTER 2020-03-06 18:24 | Emergency (ER) | payer MEDICARE ==
[~2020-03-06] VITALS: Ht 149.9 cm; Wt 40.8 kg
[~2020-03-06 18:24] MED LIST changes: +ALPRAZOLAM XR3 MG PO; +CEFDINIR300 MG PO; +CYMBALTA20 MG PO; +LISINOPRIL-HCT1 EAC1 PO; +LISINOPRIL-HCT1 EAC2 PO; +PREDNISONE 10 M10 MG PO; +VENLAFAXINE HC225 MG PO; +VENLAFAXINE HCL25 MG PO
[2020-03-06 18:56] LABS: ABSOLUTE LYMPHOCYTES 1.5 thou/uL (0.8-5.3); ABSOLUTE MONOCYTES 0.7 thou/uL (0.0-1.2); BASOPHILS 0.3 %; EOSINOPHILS 0.1 %; HEMATOCRIT 46.6 % (37.0-47.0); HEMOGLOBIN 15.7 gm/dL (12.0-15.0); MCH 31.4 pg (26.0-34.0); MCHC 33.7 g/dL (28.0-37.0); MONOCYTES 6.8 %; MPV 7.7 fl. (7.2-11.1); NUCLEATED RBCS 0 /100WBC; PLATELET COUNT* 257 thou/uL (150-400); POLYS 77.8 %; RBC 5.01 mil/uL (4.20-5.00); RDW-CV 13.8 % (10.5-14.5); WBC 10.3 thou/uL (4.0-11.0)
[2020-03-06 19:01] LABS: CALCIUM 9.8 mg/dL (8.5-10.1); CREATININE 1.2 mg/dL (0.6-1.3); POTASSIUM 3.8 mmol/L (3.5-5.1)
[2020-03-06 19:03] LABS: APTT 23.6 Seconds (25.0-31.3); INR 1.1; PROTIME 11.3 Seconds (9.20-11.50)
[2020-03-06 19:12] LABS: ALBUMIN 3.9 g/dL (3.4-5.0); MAGNESIUM 2.3 mg/dL (1.8-2.4); TOTAL BILIRUBIN 0.5 mg/dL (<0.1-1.0); TOTAL PROTEIN 7.1 g/dL (6.4-8.2)
[2020-03-06 20:35] LABS: URINE BILIRUBIN NEGATIVE (Negative); URINE BLOOD TRACE (Negative); URINE CLARITY CLEAR; URINE COLOR YELLOW; URINE GLUCOSE-RANDOM NEGATIVE (Negative); URINE KETONES NEGATIVE (Negative); URINE LEUKOCYTES NEGATIVE (Negative); URINE NITRITE NEGATIVE (Negative); URINE PROTEIN NEGATIVE (Negative); URINE UROBILINOGEN 0.2 E.U./dl (0.2-1.0)
[2020-03-06] MEDS ORDERED: HYOSCYAMIN0.125 MG/1 PO (20:54)
[2020-03-06 21:50] VITALS: BP 122/78
--- NOTE | 2020-03-07 10:38 | EKG ---
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: : 1935 Requested By: Deidre Almeida Order Number: [id number] MD: Gurinder Yan Measurements Intervals [place] Rate: 62 P: 83 NC: 139 QRS: 59 QRSD: 87 T: 97 QT: 471 QTc: 479 Interpretive Statements Sinus rhythm Probable left atrial enlargement LVH w/ repol abnormalities, possible ischemia Compared to ECG 01/03/2020 00:23:22 Possible ischemia now present Electronically Signed On 03-07-2020 10:38:46 CDT by Gurinder Yan [email or web address] <ELECTRONICALLY SIGNED> By: Ana M Yan MD, [facility] 03/07/20 1038 182 182 Ana M Yan MD, [facility] /EPI
== END 2020-03-06 21:40 | disposition home or self-care (01) ==
LOC: M.ERS 18:24
PROVIDERS: Physician Assistant
DX: I10 Essential (primary) hypertension (principal); R10.32 Left lower quadrant pain; R10.11 Right upper quadrant pain; R25.2 Cramp and spasm; J44.9 Chronic obstructive pulmonary disease, unspecified; K58.9 Irritable bowel syndrome, unspecified; F17.210 Nicotine dependence, cigarettes, uncomplicated; Z85.118 Personal history of other malignant neoplasm of bronchus and lung

== ENCOUNTER 2020-06-21 23:58 | Emergency (ER) | payer MEDICARE ==
[~2020-06-21] VITALS: Ht 152.4 cm; Wt 44.5 kg
[~2020-06-21 23:58] MED LIST changes: +HYOSCYAMIN0.125 MG/1 PO
== END 2020-06-22 00:08 ==
LOC: M.ERS 23:58
DX: I46.9 Cardiac arrest, cause unspecified (principal); Z20.822 Contact with and (suspected) exposure to COVID-19; J44.9 Chronic obstructive pulmonary disease, unspecified; K58.9 Irritable bowel syndrome, unspecified; F17.210 Nicotine dependence, cigarettes, uncomplicated; Z85.118 Personal history of other malignant neoplasm of bronchus and lung